=== PATIENT | female | born 1925 | race Caucasian/White ===

== ENCOUNTER 2016-12-24 21:30 | Inpatient (IN) | payer MEDICARE, BC ==
[~2016-12-24] VITALS: Ht 165.1 cm; Wt 85.5 kg
[2016-12-24 22:53] LABS: BASO # 0.1 (0.0-0.2); BASO % 0.7 % (0.0-2.0); EOS # 0.3 (0.0-0.7); EOS % 2.8 % (0-4.0); GRAN # 5.8 (1.4-6.5); GRAN % 65.6 % (42.2-75.2); LYMPH % 22.2 % (20.0-51.0); MEAN CELL VOLUME 90 fl (80.0-100.0); MEAN CORPUSCULAR HGB CONC 34 g/dl (33.0-37.0); MEAN PLATELET VOLUME 11.6 fl (7.4-10.4); MONO # 0.7 (0.1-0.6); MONO % 7.4 % (1.7-9.3); PLATELET COUNT 166 K/mm3 (130-400); RED BLOOD COUNT 3.94 M/mm3 (4.10-5.30); REDCELL DISTRIBUTION WIDTH-CV 13.5 % (11.5-14.5); WHITE BLOOD COUNT 8.8 K/mm3 (4.8-10.8)
[2016-12-24 22:54] LABS: HEMATOCRIT 35.4 % (37.0-47.0); HEMOGLOBIN 11.9 g/dl (12.5-16.0); MEAN CORPUSCULAR HEMOGLOBIN 30 pg (27.0-31.0)
[2016-12-24 22:58] LABS: PROTHROMBIN TIME 11.1 SECONDS (9.7-12.8)
[2016-12-24 23:00] LABS: PARTIAL THROMBOPLASTIN TIME 26.2 SECONDS (26.0-37.0)
[2016-12-24 23:02] LABS: ADJUSTED CALCIUM 10.2 mg/dL (8.4-10.2); BILIRUBIN,TOTAL 0.4 mg/dL (0.0-1.0); CALCIUM 10.2 mg/dL (8.4-10.2); CREATININE, serum 0.93 mg/dL (0.52-1.25); POTASSIUM 4.1 mmol/L (3.4-5.0); TOTAL PROTEIN 6.9 gm/dL (6.4-8.2)
[2016-12-24 23:33] LABS: PH 6 (5-8); URINE APPEARANCE Hazy; URINE BACTERIA Rare /hpf; URINE BILIRUBIN Negative (NEGATIVE); URINE BLOOD Negative (NEGATIVE); URINE COLOR Yellow; URINE GLUCOSE 2+ (NEGATIVE); URINE KETONE Negative (NEGATIVE); URINE UROBILINOGEN Negative (NEGATIVE)
[2016-12-24 23:34] LABS: URINE WBC 20-50 /hpf
[2016-12-25 02:30] VITALS: BP 160/58; PULSE 80; TEMP 98.2
[2016-12-25 06:10] VITALS: BP 141/47; PULSE 73; TEMP 98.5
[2016-12-25 06:44] LABS: BASO # 0.1 (0.0-0.2); BASO % 0.9 % (0.0-2.0); EOS # 0.2 (0.0-0.7); EOS % 1.6 % (0-4.0); GRAN # 6.9 (1.4-6.5); GRAN % 72.8 % (42.2-75.2); LYMPH # 1.6 (1.2-3.4); LYMPH % 16.6 % (20.0-51.0); MEAN CELL VOLUME 91 fl (80.0-100.0); MEAN CORPUSCULAR HGB CONC 33 g/dl (33.0-37.0); MEAN PLATELET VOLUME 11.7 fl (7.4-10.4); MONO # 0.7 (0.1-0.6); MONO % 7.5 % (1.7-9.3); PLATELET COUNT 166 K/mm3 (130-400); RED BLOOD COUNT 3.92 M/mm3 (4.10-5.30); REDCELL DISTRIBUTION WIDTH-CV 13.6 % (11.5-14.5); WHITE BLOOD COUNT 9.4 K/mm3 (4.8-10.8)
[2016-12-25 06:47] LABS: HEMATOCRIT 35.6 % (37.0-47.0); HEMOGLOBIN 11.9 g/dl (12.5-16.0); MEAN CORPUSCULAR HEMOGLOBIN 30 pg (27.0-31.0)
[2016-12-25 06:57] LABS: CALCIUM 9.7 mg/dL (8.4-10.2); CREATININE, serum 0.84 mg/dL (0.52-1.25); POTASSIUM 4.2 mmol/L (3.4-5.0)
[2016-12-25] MEDS ORDERED: WELCHOL 625MG625 MG PO (07:08)
[2016-12-25] MEDS ORDERED: LOFIBRA160 MG PO (07:09)
[2016-12-25] MEDS ORDERED: VITAMIN D 1001000 IU PO (07:09)
[2016-12-25] MEDS ORDERED: COREG 6.256.25 MG/TA PO (07:10)
[2016-12-25] MEDS ORDERED: CALCIUM CARBON650 M2 PO (07:10)
[2016-12-25] MEDS ORDERED: JANUVIA 100MG100 MG PO (08:42)
[2016-12-25 10:48] VITALS: BP 138/45; PULSE 70; TEMP 98.6
[2016-12-25 14:06] VITALS: BP 164/47; PULSE 76; TEMP 97.7
[2016-12-25 17:32] VITALS: BP 155/48; PULSE 77; TEMP 98.3
[2016-12-25 21:39] VITALS: BP 162/49; PULSE 79; TEMP 98.8
[2016-12-26 02:02] VITALS: BP 168/62; PULSE 60; TEMP 98.2
[2016-12-26 04:43] VITALS: BP 141/60; PULSE 76; TEMP 99.6
[2016-12-26 10:17] VITALS: BP 152/43; PULSE 76; TEMP 98.4
[2016-12-26 14:06] VITALS: BP 150/46; PULSE 80; TEMP 98.3
[2016-12-26 17:43] VITALS: BP 163/49; PULSE 72; TEMP 98.3
[2016-12-26 21:28] VITALS: BP 150/49; PULSE 60; TEMP 98.5
[2016-12-27 01:08] VITALS: BP 138/36; PULSE 74; TEMP 97.5
[2016-12-27 05:29] VITALS: BP 164/49; PULSE 66; TEMP 97.9
[2016-12-27 09:43] VITALS: BP 122/39; PULSE 66; TEMP 98.1
[2016-12-27] MEDS ORDERED: CIPRO 500MG TA500 MG PO (10:21)
[2016-12-27] MEDS ORDERED: NOVOLOG 100U100 U/M1 SQ (10:22)
[2016-12-27] MEDS ORDERED: LEVEMIR100 U/ML SQ (10:23)
[2016-12-27] MEDS ORDERED: NORCO 325 MG-51 TAB PO (10:24)
[2016-12-27 11:35] VITALS: BP 122/39; PULSE 66; TEMP 98.1
[2016-12-27] MEDS ORDERED: ASPIRIN 32325 MG/TAB PO (14:09)
== END 2016-12-27 13:05 | DRG 536 ==
LOC: COL.ER 21:30 → JCC 23:22
PROVIDERS: Emergency Medicine; Family Medicine
DX: S32.592A Other specified fracture of left pubis, initial encounter for closed fracture (principal); N39.0 Urinary tract infection, site not specified; I10 Essential (primary) hypertension; E11.9 Type 2 diabetes mellitus without complications; S50.312A Abrasion of left elbow, initial encounter; S80.212A Abrasion, left knee, initial encounter; B96.20 Unspecified Escherichia coli [E. coli] as the cause of diseases classified elsewhere; W10.8XXA Fall (on) (from) other stairs and steps, initial encounter
CPT/HCPCS: 99222-AI; 99232-AI; 99239; G8978-GP; G8979-GP; G8987-GO; G8988-GO; J0696; J1650; J1815; J2270; J2405; J7030